=== PATIENT | female | born 2000 | race Caucasian/White ===

== ENCOUNTER → 2018-04-19 13:05 | Outpatient (CLI) | payer MEDICAID, SELFPAY ==
[2018-04-19 13:58] LABS: Hematocrit 39.4 % (37-47); Mean Corpuscular Hgb 29.5 pg (27.0-32.0); Mean Corpuscular Volume 89.5 fL (81-99); Platelet Count 254 K/mm3 (150-450); RBC Distribution Width CV 12.7 % (11.6-14.6); RBC Distribution Width SD 41.4 fl (35.1-43.9); White Blood Count 5.5 K/mm3 (4.4-11.0)
[2018-04-19 13:59] LABS: Scan Indicated on CBC? Y/N NO
[2018-04-19 14:14] LABS: ALB/GLOB Ratio 1.3 RATIO (0.9-2.4); AST(SGOT) 12 U/L (15-37); Alanine Aminotransfer ALT/SGPT 13 U/L (13-56); Albumin, Serum 4.2 g/dL (3.2-5.0); Alkaline Phosphatase 144 U/L (45-117); Anion Gap 9 (5-15); BUN 16 mg/dL (7-18); BUN/Creat Ratio 23.1 RATIO (10-20); Calcium,Total 8.8 mg/dL (8.5-10.1); Chloride 109 mmol/L (98-107); Creatinine, Serum 0.69 mg/dL (0.55-1.02); EST Glomerular Filtration Rate 115 mL/min (>60); Est Glom Filt Rate - Afr Amer 139 mL/min (>60); Estradiol 40.6 pg/mL; Follicle Stimulating Hormone 30.5 mIU/mL; Globulin 3.2 g/dL (2.2-4.2); Glucose 107 mg/dL (74-106); Luteinizing Hormone 9.4 mIU/mL; Potassium 3.5 mmol/L (3.5-5.1); Protein, Total 7.4 g/dL (6.4-8.2); Sodium Level 141 mmol/L (136-145)
[2018-04-19 14:22] LABS: Vitamin D,25 Hydroxy 34.2 ng/mL (29.95-100.01)
== END ==
PROVIDERS: Family Provider Pediatrics; PCP Pediatrics
DX: E28.8 Other ovarian dysfunction (principal)
CPT/HCPCS: 36415; 80053; 82306; 82670; 83001; 83002; 85027

== ENCOUNTER → 2019-03-28 13:01 | Outpatient (CLI) | payer MEDICAID, SELFPAY ==
[2017-01-03 17:53] VITALS: BMI 17.1
[2019-03-28 14:19] LABS: Vitamin D,25 Hydroxy 24.1 ng/mL (29.95-100.01)
[2019-03-28 18:22] LABS: Estradiol 72.4 pg/mL; Follicle Stimulating Hormone 11.1 mIU/mL; Luteinizing Hormone 2.7 mIU/mL; T4 Free Direct 1.01 ng/dL (0.76-1.46); Thyroid Stim Hormone (TSH) 2.47 uIU/mL (0.358-3.74)
== END ==
PROVIDERS: Family Provider Pediatrics; PCP Pediatrics
DX: E28.8 Other ovarian dysfunction (principal)
CPT/HCPCS: 36415; 82306; 82670; 83001; 83002; 84439; 84443